=== PATIENT | male | born 1945 | race Caucasian/White ===

== ENCOUNTER 2016-08-07 11:26 | Emergency (ER) | payer OTHER ==
[~2016-08-07] VITALS: Ht 160 cm; Wt 70.2 kg
[2016-08-07 11:28] VITALS: BP 132/72; PULSE 86; RESP 24; TEMP 98.3; O2SAT 94
--- NOTE | 2016-08-07 11:47 | PD ---
Physical Exam Date Seen by Provider: August 07, 2016 Time Seen by Provider: 11:45 Narrative Pt states he has been spitting up blood since Thursday evening. Pt reports a cough and weakness as well. No other complaints. Pt is on ASA. VSS, awaiting bed placement. Data Data Last Documented VS Vital Signs Date Time Temp Pulse Resp B/P Pulse Ox O2 Delivery O2 Flow Rate FiO2 08/07/16 11:28 98.3 86 24 132/72 94 Room Air [facility] Supervised Visit with MARTHA: Rachel Villanueva August 07, 2016 11:47
[2016-08-07] MEDS ORDERED: BENZ100 PO (13:03)
--- NOTE | 2016-08-07 13:05 | PD ---
HPI Chief Complaint: GI Complaint Time Seen by Provider: 12:19 Travel History International Travel<30 days: No Contact w/Intl Traveler<30days: No Traveled to known affect area: No History of Present Illness HPI The patient 71 years old. He has had a new cough for the past 4 days or so. There is phlegm and also blood. The hemoptysis is essentially blood-streaked clubs of phlegm. States he swallows it most of the time. He's had no hematemesis. He reports a [id number] smoking history. He has had no fever. He does cough frequently however this, feels new. He does not have shortness of breath. He does describe some mild lightheadedness which started just after arrival to the ER. No chest pain. He follows with Dr. Angu[facility]. [facility] Past Medical History Hx Anticoagulant Therapy: Yes (ASA) Social History Alcohol Use: Yes Tobacco Use: Yes Substance Use: No Allergies-Medications Reported Meds & Prescriptions Reported Meds & Active Scripts Active Tessalon Perles (Benzonatate) 100 Mg Cap 100 Mg PO TID PRN Review of Systems Except as stated in HPI: all other systems reviewed are Neg General / Constitutional: No: Fever Physical Exam Narrative GENERAL: 71-year-old male pleasant well-nourished well-developed SKIN: Focused skin assessment warm/dry. HEAD: Atraumatic. Normocephalic. EYES: Pupils equal and round. No scleral icterus. No injection or drainage. ENT: No nasal bleeding or discharge. Mucous membranes pink and moist. No blood in the posterior oropharynx. NECK: Trachea midline. No JVD. CARDIOVASCULAR: Regular rate and rhythm. No murmur appreciated. RESPIRATORY: No accessory muscle use. Clear to auscultation. Breath sounds equal bilaterally. GASTROINTESTINAL: Abdomen soft, non-tender, nondistended. Hepatic and splenic margins not palpable. MUSCULOSKELETAL: No obvious deformities. No clubbing. No cyanosis. No edema. NEUROLOGICAL: Awake and alert. No obvious cranial nerve deficits. Motor grossly within normal limits. Normal speech. PSYCHIATRIC: Appropriate mood and affect; insight and judgment normal. Data Data Last Documented VS Vital Signs Date Time Temp Pulse Resp B/P Pulse Ox O2 Delivery O2 Flow Rate FiO2 08/07/16 11:28 98.3 86 24 132/72 94 Room Air Vital signs reviewed Orders Complete Blood Count With Diff (08/07/16 12:19) Chest, Single Ap (08/07/16 12:19) Labs Laboratory Tests Test 08/07/16 12:45 White Blood Count 10.3 TH/MM3 Red Blood Count 5.74 MIL/MM3 Hemoglobin 17.0 GM/DL Hematocrit 50.7 % Mean Corpuscular Volume 88.2 FL Mean Corpuscular Hemoglobin 29.6 PG Mean Corpuscular Hemoglobin 33.5 % Concent Red Cell Distribution Width 14.9 % Platelet Count 192 TH/MM3 Mean Platelet Volume 10.0 FL Neutrophils (%) (Auto) 63.0 % Lymphocytes (%) (Auto) 24.5 % Monocytes (%) (Auto) 9.8 % Eosinophils (%) (Auto) 2.0 % Basophils (%) (Auto) 0.7 % Neutrophils # (Auto) 6.5 TH/MM3 Lymphocytes # (Auto) 2.5 TH/MM3 Monocytes # (Auto) 1.0 TH/MM3 Eosinophils # (Auto) 0.2 TH/MM3 Basophils # (Auto) 0.1 TH/MM3 CBC Comment DIFF FINAL Differential Comment MDM Medical Decision Making Medical Screen Exam Complete: Yes Emergency Medical Condition: Yes Differential Diagnosis Hemoptysis, massive hemoptysis, anemia, pneumonia Narrative Course The patient is aware that given his age and [id number] smoking history there is a good chance this hemoptysis could reflect a lung cancer. We discussed the need for prompt outpatient follow-up and the patient verbalized understanding. Hemoglobin and chest xray unremarkable. He has follow up at the [facility]. Pt reassured. CBC & BMP Diagram 08/07/16 12:45 Last 24 hours Impressions Chest X-Ray 08/07/16 1219 Signed Impressions: Service Date/Time: July 12:18 - CONCLUSION: Pulmonary hyperinflation and interstitial prominence characteristic of COPD. No evidence of acute airspace disease, pulmonary edema or effusions. Foster Sanchez MD Diagnosis Primary Impression: Hemoptysis Referrals: [facility] [place] 2 days Additional Instructions: You have a choice when it comes to health care, and we are glad that you chose [facility]. Hopefully, we have met your expectations on today's visit. You are welcome to return to [facility] at any time, as we are committed to meeting the health care needs of our community. PLEASE UNDERSTAND YOU COUGHING OF BLOOD IS COULD BE DUE TO LUNG CANCER. LET'S HOPE IT IS NOT. IN ANY CASE, BE CERTAIN TO FOLLOW UP WITH YOUR PRIMARY DOCTOR AT THE [facility] FOR A THOROUGH EVALUATION. Med/Other Pt SpecificInfo: Prescription(s) given (nelida) Scripts Benzonatate (Tessalon Perles)100 Mg Gig505 Mg PO TID PRN (COUGH) #6 CAP Ref 0 Prov:Paulie Heaton MD 08/07/16 Disposition: 01 DISCHARGE HOME Condition: Stable Paulie Heaton MD August 07, 2016 13:05
--- NOTE | 2016-08-07 13:10 | RADRPT ---
EXAM DATE/TIME: 08/07/2016 12:18 [place] COMPARISON: No previous studies available for comparison. INDICATIONS : Cough MEDICAL HISTORY : None. SURGICAL HISTORY : None. ENCOUNTER: Initial ACUITY: 1 week PAIN SCORE: 0/10 LOCATION: Bilateral chest FINDINGS: Lungs are hyperinflated. Mild interstitial prominence is seen in the bases. There is no evidence of c onsolidating airspace disease or effusion. There are no mass densities or effusions. Heart and mediastinal structures are unremarkable. CONCLUSION: Pulmonary hyperinflation and interstitial prominence characteristic of COPD. No evidence of acute airspace disease, pulmonary edema or effusions. Foster Sanchez MD on August 07, 2016 at 13:05 Board Certified Radiologist. This report was verified electronically.
[2016-08-07 13:16] LABS: AUTOMATED NEUTROPHIL # 6.5 TH/MM3 (1.8-7.7); BASOPHIL # 0.1 TH/MM3 (0-0.2); BASOPHIL % 0.7 % (0.0-2.0); EOSINOPHIL # 0.2 TH/MM3 (0-0.4); HEMATOCRIT 50.7 % (39.0-51.0); HEMO FLAGS DIFF FINAL; LYMPH % 24.5 % (9.0-44.0); LYMPHOCYTE # 2.5 TH/MM3 (1.0-4.8); MEAN CELL VOLUME 88.2 FL (80.0-100.0); MEAN CORPUSCULAR HEMOGLOBIN 29.6 PG (27.0-34.0); MEAN CORPUSCULAR HGB CONC 33.5 % (32.0-36.0); MONO % 9.8 % (0.0-8.0); PLATELET COUNT 192 TH/MM3 (150-450); RED BLOOD COUNT 5.74 MIL/MM3 (4.50-5.90); RED CELL DISTRIBUTION WIDTH 14.9 % (11.6-17.2); WHITE BLOOD COUNT 10.3 TH/MM3 (4.0-11.0)
== END 2016-08-07 13:55 | disposition home or self-care (01) ==
LOC: NEPD 11:26
DX: R04.2 Hemoptysis (principal); Z72.0 Tobacco use
CPT/HCPCS: 71010; 85025; 99283